=== PATIENT | male | born 1995 | race Hispanic/Latino ===

== ENCOUNTER 2019-05-23 06:05 | Emergency (ER) | payer SELFPAY | END 2019-05-23 06:40 | disposition home or self-care (01) | LOC: ERS 06:05 | DX: J02.9 Acute pharyngitis, unspecified (principal); F17.210 Nicotine dependence, cigarettes, uncomplicated | CPT/HCPCS: 99282 ==

== ENCOUNTER 2019-11-01 22:38 | Emergency (ER) | payer SELFPAY ==
[2019-11-01] MEDS ORDERED: Proparacaine 0.5% Opth 15 ML BOT ONE (23:35)
[2019-11-01] MEDS ORDERED: Fluorescein Opthalmic Strip ONE (23:35)
== END 2019-11-01 23:57 | disposition home or self-care (01) ==
LOC: ERS 22:38
DX: S05.01XA Injury of conjunctiva and corneal abrasion without foreign body, right eye, initial encounter (principal); F17.210 Nicotine dependence, cigarettes, uncomplicated; W34.010A Accidental discharge of airgun, initial encounter
CPT/HCPCS: 99283